=== PATIENT | female | born 1990 | race Caucasian/White ===

== ENCOUNTER 2020-06-04 10:51 | Outpatient (REF) | payer OTHER, SELFPAY ==
[2020-06-04 12:27] LABS: Vitamin D 25-OH Total 38.8 ng/mL (>30)
== END 2020-06-04 10:52 | disposition home or self-care (01) ==
LOC: HO.LAB 10:51
PROVIDERS: PCP Internal Medicine; Visit Provider Internal Medicine
DX: E55.9 Vitamin D deficiency, unspecified (principal)
CPT/HCPCS: 82306

== ENCOUNTER 2020-09-17 11:25 | Outpatient (REF) | payer OTHER, SELFPAY ==
[2020-09-18 08:10] LABS: HBsAGNum1 0.57 S/CO (0.00-0.99); HIV AB/AG Nonreactive (Nonreactive); HIV Num 1 0.34 S/CO (0.00-0.99); Hepatitis B Surface Antigen Negative (Negative); ~HepC Num1 0.12 S/CO (0.00-0.79); ~Hepatitis C Antibody Nonreactive (Nonreactive)
[2020-09-18 08:32] LABS: Syphilis Screen Nonreactive (Nonreactive)
[2020-09-18 18:13] LABS: C. trachomatis RNA TMA NOT DETECTED (NOT DETECTED); N. gonorrhoeae RNA TMA NOT DETECTED (NOT DETECTED)
== END 2020-09-17 11:26 | disposition home or self-care (01) ==
LOC: HO.LAB 11:25
PROVIDERS: PCP Internal Medicine; Visit Provider Advanced Practice Midwife
DX: Z01.419 Encounter for gynecological examination (general) (routine) without abnormal findings (principal); Z20.2 Contact with and (suspected) exposure to infections with a predominantly sexual mode of transmission
CPT/HCPCS: 36415; 86780; 86803; 87340; 87389; 87491; 87591; 87624; 88141; 88142

== ENCOUNTER 2020-11-03 13:22 | Outpatient (REF) | payer OTHER, SELFPAY | END 2020-11-03 13:23 | disposition home or self-care (01) | LOC: HO.LAB 13:22 | PROVIDERS: Visit Provider Obstetrics & Gynecology | DX: N87.0 Mild cervical dysplasia (principal) | CPT/HCPCS: 57455; 88305 ==

== ENCOUNTER → 2020-11-17 12:12 | Outpatient (BNVA) | payer OTHER, SELFPAY | PROVIDERS: Visit Provider Obstetrics & Gynecology ==

== ENCOUNTER 2021-11-24 12:41 | Outpatient (REF) | payer OTHER, SELFPAY ==
[2021-11-24 13:00] LABS: MANUAL DIFF FLAG NO
[2021-11-24 13:26] LABS: Basophils Absolute Auto 0.1 X10*3/uL (0.0-0.2); Basophils Percent Auto 0.6 % (0-2); Eosinophils Absolute Auto 0.1 X10*3/uL (0.0-0.4); Eosinophils Percent Auto 0.9 % (0-4); Hematocrit 44.1 % (37.0-47.0); Hemoglobin 14.3 g/dl (12.0-16.0); Imm Gran Abs Auto 0.02 X10*3/uL (0.00-0.03); Imm Gran Pct Auto 0.3 % (0.0-0.4); Lymphocytes Absolute Auto 2.2 X10*3/uL (1.2-4.9); Lymphocytes Percent Auto 27.5 % (20-40); Mean Corpuscular HGB Conc 32.4 g/dl (31.0-35.0); Mean Corpuscular Hemoglobin 27.7 pg (27.0-33.0); Mean Corpuscular Volume 85.3 fL (80.0-98.0); Mean Platelet Volume 10.8 fL (9.4-12.3); Monocytes Absolute Auto 0.4 X10*3/uL (0.1-1.2); Monocytes Percent Auto 5.5 % (2-11); Neutrophils Absolute Auto 5.2 x10*3/uL (2.0-8.3); Neutrophils Percent Auto 65.2 % (45-73); Platelet Count 364 X10*3/uL (160-400); Red Blood Count 5.17 X10*6/uL (4.20-5.50); White Blood Count 7.9 X10*3/uL (4.8-10.8)
[2021-11-24 13:44] LABS: Alanine Aminotransferase 50 U/L (0-31); Albumin Level 4.4 g/dL (3.5-5.0); Alkaline Phosphatase 89 U/L (39-117); Anion Gap 15 (12-20); Aspartate Amino Transferase 27 U/L (5-31); Bilirubin Total 0.5 mg/dL (0.0-1.0); Blood Urea Nitrogen 9 mg/dL (9-16); Calcium 9.5 mg/dL (8.4-10.2); Carbon Dioxide 23 mmol/L (22-29); Chloride 104 mmol/L (96-108); Cholesterol 241 mg/dL; Estimated Glomerular Filt Rate > 60; Glucose Fasting 108 mg/dL (60-99); HDL Cholesterol 44 mg/dL; LDL Cholesterol Calculated 171 mg/dl; Potassium 4.9 mmol/L (3.3-5.1); Sodium 137 mmol/L (135-145); Total Protein 7.9 g/dL (6.5-8.0); Triglycerides 134 mg/dL
[2021-11-24 14:05] LABS: Vitamin D 25-OH Total 20.5 ng/mL (>30)
== END 2021-11-24 12:42 | disposition home or self-care (01) ==
LOC: HO.LAB 12:41
PROVIDERS: PCP Internal Medicine; Visit Provider Internal Medicine
DX: Z00.00 Encounter for general adult medical examination without abnormal findings (principal); E55.9 Vitamin D deficiency, unspecified; J45.30 Mild persistent asthma, uncomplicated
CPT/HCPCS: 36415; 80053; 80061; 82306; 85025

== ENCOUNTER 2022-06-13 06:17 | Day surgery (SDC) | payer OTHER, SELFPAY ==
[2022-06-13] VITALS (16 sets, daily range): BP systolic 98–155; BP diastolic 54–75; PULSE 64–104; RESP 12–18; TEMP 36.3–37.3; O2SAT 95–100; BMI 30.4
--- NOTE | ~2022-06-13 | US_ITS ---
EXAMINATION: US ABDOMEN LIMITED CLINICAL INFORMATION: Right upper quadrant pain. COMPARISON: December 2019. TECHNIQUE: Real-time imaging of the right upper quadrant abdominal viscera. FINDINGS: PANCREAS: Normal. LIVER: Hyper echogenicity observed near the louis hepatis similar to previous evaluation at 3 x 1.9 x 2.3 cm. It is uncertain if this reflects hemangioma or pronounced fatty infiltration. GALLBLADDER: Gallstones observed. Gallbladder wall thickness 4.5 to 5 mm maximally but no pericholecystic fluid. COMMON BILE DUCT: Normal in caliber measuring 0.4 cm in diameter. RIGHT KIDNEY: Normal. No hydronephrosis. No renal calculi or focal parenchymal lesions. The kidney measures 9.6 cm in maximum dimension. There is a right-sided extrarenal pelvis observed. FREE FLUID: None. US/US abdomen limited IMPRESSION: Cholelithiasis. Gallbladder wall mildly thickened at 4.5 to 5 mm but no pericholecystic fluid. No CBD dilatation appreciated. Hyperechogenicity in the liver observed near the louis hepatis similar to previous evaluation. It is uncertain if this is related to hemangioma or pronounced fatty infiltration. MR examination of the liver as an outpatient without and with IV contrast enhancement could be helpful toward further clarification.
--- NOTE | 2022-06-13 07:33 | ED.NAVMDI ---
HPI - Nausea/Vomiting/Diarrhea General Chief complaint: General Medical Stated complaint: Vomiting Time Seen by Provider: 06/13/22 06:59 Source: patient and family Mode of arrival: ambulatory Limitations: no limitations History of Present Illness HPI Narrative: 31 yo female with hx of asthma, migraines, GERD reports yesterday she drank a fizzy drink about 1 hour later she developed n/v/d abdominal pain body aches and chills. Denies any other exposures or contacts. Has been sick since midnight MD elicited complaint: nausea, vomiting, diarrhea and abdominal pain Onset (ago): hour(s) (7) Description of vomiting: food contents and watery Associated nausea: Yes Associated abdominal pain: Yes Location of pain: diffuse and RUQ Radiation: diffuse Pain consistency: constant Severity: moderate Quality: cramping and aching Exacerbating factors: eating Relieving factors: none Associated symptoms: myalgias, fever/chills, loss of appetite, malaise, nausea/vomiting and weakness Treatment prior to arrival: other (pantoprazole and OTC antacid) Related Data Previous Rx's Medication Instructions Recorded norethindrone 1 mg-ethinyl 1 tab PO DAILY #84 tabs 10/22/21 estradiol 20 mcg ()-iron 75 mg (7) tablet (09/16 ()) pantoprazole 40 mg tablet,delayed 40 mg PO DAILY 90 days #90 tabs 04/27/22 release Allergies Allergy/AdvReac Type Severity Reaction Status Date / Time No Known Allergies Allergy Verified 11/22/21 13:21 [No Known Allergies*] Review of Systems Review of Systems: Constitutional : No Weight loss, No Fever, pos Chills ENT/Mouth : No sore throat, No Rhinorrhea Eyes: No Swelling, No Redness Cardiovascular : No Chest Pain, No SOB, NoEdema Respiratory : No Cough, No Sputum, No Wheezing Gastrointestinal : Positive Nausea, Positive Vomiting, positive Diarrhea, positive abdominal Pain, No Hematochezia, No Melena Genitourinary : No Dysuria, No Urinary Frequency, No Hematuria, No Urgency Musculoskeletal : No joint pain, pos Myalgias, No Joint Swelling Skin : No Skin Lesions, No rash Neuro : No Weakness, No Numbness, No Dizziness, No Headache Psych : No Anxiety/Panic, No Depression Heme/Lymph: No Bruising, No Lymphadenopathy Endocrine : No Polyuria, No Polydipsia All other systems reviewed and are negative. Gastrointestinal: Gastrointestinal: Reports nausea PMFSH Past Medical History Attestation statement: The following information was validated with the patient. Medical History Asthma Encounter for physical examination GERD (gastroesophageal reflux disease) Migraine Oral contraceptive use Surgical History History of lingual frenulectomy Family History Family History Father Diabetes CVD (cardiovascular disease) Mother No problems noted. Sister In good health Maternal Grandfather Pancreatic cancer Family/Other FH: mental illness Social History Social History Housing: House Alcohol intake: current Alcohol intake frequency: holidays/special occasions only Alcohol type: beer, wine and hard liquor Patient Tobacco Use Status: Former Tobacco user Tobacco use type: Cigarette e-Cigarette/Vaping Use: Never Used Second Hand Smoke Exposure: No Advance Directives: Yes Advance Directives Information Provided: Yes Advance Directives on File: No service: No Current occupational status: employed Current occupational exposures/hazards: No Gender identity: Female Physical Exam Vital Signs: Vital Signs: Last Vital Signs Temp 98.7 F 06/13/22 08:33 Pulse 83 06/13/22 08:33 Resp 12 06/13/22 08:33 BP 98/54 L 06/13/22 08:33 Pulse Ox 100 06/13/22 08:33 O2 Del Method 06/13/22 08:33 BMI result Body Mass Index 30.4 Appearance: Alert. Oriented X3. No acute distress. Anxious Eyes: Pupils equal, round and reactive to light. ENT: Pharynx normal. Neck: Normal inspection. Neck supple. CVS: Normal heart rate and rhythm. Pulses normal. Respiratory: No respiratory distress. Breath sounds normal. Abdomen: Soft and mild diffuse ttp but moderate RUQ pain with + rojas's sign Skin: Skin warm and dry. Normal skin color. Normal skin turgor. Extremities: No lower extremity edema. No calf ttp Neuro: Oriented X 3. No motor deficit. No sensory deficit. Course Course Course Narrative: message sent to Dr. Aviles 941am - plan to admit the patient MDM - Nausea/Vomiting/Diarrhea MDM Narrative Medical decision making narrative: 31 yo female with hx of asthma and GERD here with c/o n/v/d and body aches/chills at this time will need labs, UA, US of GB - flu and COVID swab. IVF and toradol/pepcid ordered. Possible viral / food poisoning vs cholecystitis. Lab Data Result diagrams: 06/13/22 07:38 06/13/22 07:38 Labs: Lab Results 06/13/22 06/13/22 06/13/22 Range/Units 07:38 07:38 07:38 WBC 11.9 H (4.8-10.8) X10*3/uL RBC 5.01 (4.20-5.50) X10*6/uL Hgb 13.7 (12.0-16.0) g/dl Hct 41.3 (37.0-47.0) % MCV 82.4 (80.0-98.0) fL MCH 27.3 (27.0-33.0) pg MCHC 33.2 (31.0-35.0) g/dl RDW 12.7 (11.0-16.0) % Plt Count 310 (160-400) X10*3/uL MPV 10.7 (9.4-12.3) fL Immature Gran % (Auto) 0.3 (0.0-0.4) % Neut % (Auto) 94.6 H (45-73) % Lymph % (Auto) 4.1 L (20-40) % [place] % (Auto) 0.8 L (2-11) % Eos % (Auto) 0.0 (0-4) % Baso % (Auto) 0.2 (0-2) % Lymph # (Auto) 0.5 L (1.2-4.9) X10*3/uL [place] # (Auto) 0.1 (0.1-1.2) X10*3/uL Eos # (Auto) 0.0 (0.0-0.4) X10*3/uL Baso # (Auto) 0.0 (0.0-0.2) X10*3/uL Abs Immat Gran (auto) 0.03 (0.00-0.03) X10*3/uL Absolute Neuts (auto) 11.2 H (2.0-8.3) x10*3/uL Absolute Nucleated RBC 0.000 (0.0-0.012) X10*3/uL Nucleated RBC % (auto) 0.0 (0.0-0.2) /100WBC Smear Tech's Comments VERIFIED Sodium 139 (135-145) mmol/L Potassium 4.3 (3.3-5.1) mmol/L Chloride 104 (96-108) mmol/L Carbon Dioxide 22 (22-29) mmol/L Anion Gap 17 (12-20) BUN 8 L (9-16) mg/dL Creatinine 0.84 (0.5-1.4) mg/dL Estim Creat Clear Calc 90.3 Estimated GFR > 60 Random Glucose 127 H (60-115) mg/dL Calcium 9.4 (8.4-10.2) mg/dL Total Bilirubin 0.4 (0.0-1.0) mg/dL AST 23 (5-31) U/L ALT 40 H (0-31) U/L Alkaline Phosphatase 83 (39-117) U/L Total Protein 7.9 (6.5-8.0) g/dL Albumin 4.5 (3.5-5.0) g/dL Lipase 15 (8-78) U/L Urine Color Urine Appearance Urine pH (5.0-9.0) Ur Specific [place] (1.005-1.025) Urine Protein (Neg-Trace) mg/dL Urine Glucose (UA) (Negative) mg/dL Urine Ketones (Negative) mg/dL Urine Blood (Negative) Urine Nitrite (Negative) Ur Leukocyte Esterase (Negative) Urine RBC (0-2) /HPF Urine WBC (0-5) /HPF Ur Squamous Epith Cells (0-2) /HPF Urine Bacteria (None Seen) Hyaline Casts (0-2) /LPF Urine Test (NEGATIVE) COVID-19 (SHAHRAM) (Negative) COVID-19 Clin Com Influenza Type A (FELIBERTO) Negative (Negative) Influenza Type B (FELIBERTO) Negative (Negative) Influenza A & B Note See Note 06/13/22 06/13/22 06/13/22 Range/Units 07:38 08:38 08:38 WBC (4.8-10.8) X10*3/uL RBC (4.20-5.50) X10*6/uL Hgb (12.0-16.0) g/dl Hct (37.0-47.0) % MCV (80.0-98.0) fL MCH (27.0-33.0) pg MCHC (31.0-35.0) g/dl RDW (11.0-16.0) % Plt Count (160-400) X10*3/uL MPV (9.4-12.3) fL Immature Gran % (Auto) (0.0-0.4) % Neut % (Auto) (45-73) % Lymph % (Auto) (20-40) % [place] % (Auto) (2-11) % Eos % (Auto) (0-4) % Baso % (Auto) (0-2) % Lymph # (Auto) (1.2-4.9) X10*3/uL [place] # (Auto) (0.1-1.2) X10*3/uL Eos # (Auto) (0.0-0.4) X10*3/uL Baso # (Auto) (0.0-0.2) X10*3/uL Abs Immat Gran (auto) (0.00-0.03) X10*3/uL Absolute Neuts (auto) (2.0-8.3) x10*3/uL Absolute Nucleated RBC (0.0-0.012) X10*3/uL Nucleated RBC % (auto) (0.0-0.2) /100WBC Smear Tech's Comments Sodium (135-145) mmol/L Potassium (3.3-5.1) mmol/L Chloride (96-108) mmol/L Carbon Dioxide (22-29) mmol/L Anion Gap (12-20) BUN (9-16) mg/dL Creatinine (0.5-1.4) mg/dL Estim Creat Clear Calc Estimated GFR Random Glucose (60-115) mg/dL Calcium (8.4-10.2) mg/dL Total Bilirubin (0.0-1.0) mg/dL AST (5-31) U/L ALT (0-31) U/L Alkaline Phosphatase (39-117) U/L Total Protein (6.5-8.0) g/dL Albumin (3.5-5.0) g/dL Lipase (8-78) U/L Urine Color Yellow Urine Appearance Cloudy Urine pH 6.0 (5.0-9.0) Ur Specific [place] >= 1.030 H (1.005-1.025) Urine Protein Trace (Neg-Trace) mg/dL Urine Glucose (UA) Negative (Negative) mg/dL Urine Ketones 80 (Negative) mg/dL Urine Blood Trace H (Negative) Urine Nitrite Negative (Negative) Ur Leukocyte Esterase Small (1+) H (Negative) Urine RBC 6-10 H (0-2) /HPF Urine WBC 11-20 H (0-5) /HPF Ur Squamous Epith Cells 6-10 (0-2) /HPF Urine Bacteria 1+ (None Seen) Hyaline Casts 0-2 (0-2) /LPF Urine Test NEGATIVE (NEGATIVE) COVID-19 (SHAHRAM) Negative (Negative) COVID-19 Clin Com See Note Influenza Type A (FELIBERTO) (Negative) Influenza Type B (FELIBERTO) (Negative) Influenza A & B Note Discharge Plan Discharge Clinical Impression: Abdominal pain, Vomiting, Cholelithiasis Patient Disposition: Admitted As Inpatient Prescriptions: No Action norethindrone-e.estradiol-iron [June FE 09/16 (28)] 1 mg-20 mcg (21)/75 mg (7) tablet 1 tab PO DAILY Qty: 84 3RF pantoprazole 40 mg tablet,delayed release (DR/EC) 40 mg PO DAILY 90 Days Qty: 90 0RF
[2022-06-13] MEDS: Ketorolac Tromethamine 15 MG/ML VIAL 30 MG IVPUSH (07:50)
[2022-06-13] MEDS: Famotidine/PF 20 MG/2 ML VIAL IVPUSH (07:50)
[2022-06-13] MEDS: ondansetron HCL 4 MG/2 ML VIAL IVPUSH ×2 (07:51→23:07)
[2022-06-13] MEDS: 0.9 % Sodium Chloride 1,000 ML 999 ML IV ×2 (07:51→09:05)
[2022-06-13 07:52] LABS: Basophils Percent Auto 0.2 % (0-2); Hematocrit 41.3 % (37.0-47.0); Hemoglobin 13.7 g/dl (12.0-16.0); Imm Gran Abs Auto 0.03 X10*3/uL (0.00-0.03); Imm Gran Pct Auto 0.3 % (0.0-0.4); Lymphocytes Absolute Auto 0.5 X10*3/uL (1.2-4.9); Lymphocytes Percent Auto 4.1 % (20-40); MANUAL DIFF FLAG SCAN; Mean Corpuscular HGB Conc 33.2 g/dl (31.0-35.0); Mean Corpuscular Hemoglobin 27.3 pg (27.0-33.0); Mean Corpuscular Volume 82.4 fL (80.0-98.0); Mean Platelet Volume 10.7 fL (9.4-12.3); Monocytes Absolute Auto 0.1 X10*3/uL (0.1-1.2); Monocytes Percent Auto 0.8 % (2-11); Neutrophils Absolute Auto 11.2 x10*3/uL (2.0-8.3); Neutrophils Percent Auto 94.6 % (45-73); Platelet Count 310 X10*3/uL (160-400); Red Blood Count 5.01 X10*6/uL (4.20-5.50); Red Cell Distribution Width 12.7 % (11.0-16.0); SCAN SMEAR FLAG 1; White Blood Count 11.9 X10*3/uL (4.8-10.8)
[2022-06-13 08:11] LABS: Alanine Aminotransferase 40 U/L (0-31); Albumin Level 4.5 g/dL (3.5-5.0); Alkaline Phosphatase 83 U/L (39-117); Anion Gap 17 (12-20); Aspartate Amino Transferase 23 U/L (5-31); Bilirubin Total 0.4 mg/dL (0.0-1.0); Blood Urea Nitrogen 8 mg/dL (9-16); COVID-19 Test Negative (Negative); Calcium 9.4 mg/dL (8.4-10.2); Carbon Dioxide 22 mmol/L (22-29); Chloride 104 mmol/L (96-108); Creatinine Clr Calc Pharmacy 90.3; Estimated Glomerular Filt Rate > 60; Glucose Random 127 mg/dL (60-115); IDNOW Serial# 16C4AD1C; IDNOW Serial# 9DB6401D; Influenza A Negative (Negative); Influenza B2 Negative (Negative); Lipase 15 U/L (8-78); Potassium 4.3 mmol/L (3.3-5.1); Sodium 139 mmol/L (135-145); Total Protein 7.9 g/dL (6.5-8.0)
[2022-06-13 08:21] LABS: SLIDE REVIEW VERIFIED
[2022-06-13 08:47] LABS: Appearance Urine Cloudy; Color Urine Yellow; Glucose Urine UA Negative (Negative); Leukocyte Esterase Urine Small (1+) (Negative); Nitrite Urine Negative (Negative); Specific Gravity - Urine >= 1.030 (1.005-1.025); UMIC TRIGGER UACC YES; Urine Blood Trace (Negative); Urine Ketones 80 mg/dL (Negative); Urine Protein Trace mg/dL (Neg-Trace)
[2022-06-13 08:49] LABS: Bacteria Urine 1+ (None Seen); Hyaline Casts Urine 0-2 /LPF (0-2); UACC Culture Trigger YES; UPreg QC Valid YES; Urine Pregnancy NEGATIVE (NEGATIVE)
--- NOTE | 2022-06-13 11:23 | P.HPGS_ITS ---
History of Present Illness History of Present Illness Date of Service: 06/13/22 Chief complaint: Vomiting Narrative: Leyla Burrell is a 31 year old female presenting to the emergency department with complaints of epigastric and right upper quadrant abdominal pain. Pain is associated with nausea and vomiting, with fever and chills. She also reports diarrhea. The pain began at approximately 23:00 and persisted since then. She reports a previous history of similar pain which was determined to be heartburn. Presentation to the emergency department she was noted to be tender in the right upper quadrant with a positive Pappas's sign. Subsequent ultrasound of the abdomen revealed a thickened gallbladder wall with gallstones within the gallbladder. Findings are suggestive of acute cholecystitis. WBC was also elevated at 11.9. Her pain was 10/10 on presentation with currently is approximately 6 to 7/10. Review of Systems Review of Systems: Yes all other systems are reviewed and are negative Constitutional: Constitutional: Denies anorexia, Reports body ache(s), Reports chills, Reports fatigue, Denies headache(s) and Denies night sweats ENT: Denies headache(s) Cardiovascular: Cardiovascular: Reports painful fingertips, Denies chest pain, Denies irregular heart rhythm and Denies palpitations Respiratory: Respiratory: Denies chest congestion, Denies cough and Denies hemoptysis Gastrointestinal: Gastrointestinal: Reports as per HPI, Reports abdominal pain, Denies constipation, Reports dyspepsia, Reports heartburn, Reports diarrhea, Reports nausea and Reports vomiting Genitourinary: Genitourinary: Reports no additional female genitourinary complaints Musculoskeletal: Musculoskeletal: Denies abnormal gait and Reports myalgias Neurologic: Denies Abnormal speech present, Denies abnormal gait, Denies headache(s) and Denies paresthesias Endocrine: Endocrine: Reports fatigue and Denies palpitations Hematologic/Lymphatic: Hematologic/Lymphatic: Denies lymphadenopathy [facility] Past Medical History Medical History Asthma Encounter for physical examination GERD (gastroesophageal reflux disease) Migraine Oral contraceptive use Family History Family History Father Diabetes CVD (cardiovascular disease) Mother No problems noted. Sister In good health Maternal Grandfather Pancreatic cancer Family/Other FH: mental illness Surgical History Surgical History History of lingual frenulectomy Social History Social History Housing: House Alcohol intake: current Alcohol intake frequency: holidays/special occasions only Alcohol type: beer, wine and hard liquor Patient Tobacco Use Status: Former Tobacco user Tobacco use type: Cigarette e-Cigarette/Vaping Use: Never Used Second Hand Smoke Exposure: No Advance Directives: Yes Advance Directives Information Provided: Yes Advance Directives on File: No service: No Current occupational status: employed Current occupational exposures/hazards: No Gender identity: Female Meds Allergies Allergy/AdvReac Type Severity Reaction Status Date / Time No Known Allergies Allergy Verified 11/22/21 13:21 [No Known Allergies*] Physical Exam Vital Signs: Vital Signs: Last Vital Signs Temp 98.7 F 06/13/22 08:33 Pulse 83 06/13/22 08:33 Resp 12 06/13/22 08:33 BP 98/54 L 06/13/22 08:33 Pulse Ox 100 06/13/22 08:33 O2 Del Method 06/13/22 08:33 BMI result Body Mass Index 30.4 Const: General: healthy appearing and comfortable Nutritional Appearance: well nourished Orientation/consciousness: patient oriented x3 Limitations: no limitations HEENT: Head: Yes normocephalic and Yes atraumatic Ears: hearing grossly normal bilaterally Eyes: Sclerae: sclerae normal EOM: EOMs intact bilaterally Resp: Effort & Inspection: normal respiratory effort Auscultation: clear to auscultation bilaterally Cardio: Jugular venous distension: no JVD Rate: regular rate Rhythm: regular rhythm Heart sounds: S1 normal heart sound present and S2 normal heart sound present GI: Inspection: Yes normal to inspection Palpation (GI): Soft to palpation, Tenderness to palpation present (GI) in the RUQ and Pappas's sign positive, no guarding and No hepatosplenomegaly present Auscultation: normal bowel sounds Rectal Exam - Female: deferred Skin: General skin exam: no rashes or lesions noted Neuro: General: patient oriented x3 Speech: No Abnormal speech present Extrem: General: Yes no clubbing, cyanosis or edema Results Results Labs: Short CBC 06/13/22 Range/Units 07:38 WBC 11.9 H (4.8-10.8) X10*3/uL Hgb 13.7 (12.0-16.0) g/dl Hct 41.3 (37.0-47.0) % Plt Count 310 (160-400) X10*3/uL BMP 06/13/22 07:38 Sodium 139 Potassium 4.3 Chloride 104 Carbon Dioxide 22 BUN 8 L Creatinine 0.84 Calcium 9.4 Liver Function 06/13/22 Range/Units 07:38 Total Bilirubin 0.4 (0.0-1.0) mg/dL AST 23 (5-31) U/L ALT 40 H (0-31) U/L Alkaline Phosphatase 83 (39-117) U/L Albumin 4.5 (3.5-5.0) g/dL Urine 06/13/22 06/13/22 Range/Units 08:38 08:38 Urine Color Yellow Urine Appearance Cloudy Urine pH 6.0 (5.0-9.0) Ur Specific [place] >= 1.030 H (1.005-1.025) Urine Protein Trace (Neg-Trace) mg/dL Urine Glucose (UA) Negative (Negative) mg/dL Urine Test NEGATIVE (NEGATIVE) Assessment and Plan (1) Acute cholecystitis due to biliary calculus: Status: Acute Plan 31-year-old female patient presenting with complaints of abdominal pain in the right upper quadrant and epigastrium associated with nausea, vomiting, diarrhea, and body aches. Patient was found to have gallstones within the gallbladder with thickened gallbladder wall. On examination patient is tender in the epigastrium and right upper quadrant with a positive Pappas sign. Findings are suggestive of acute cholecystitis. I recommended laparoscopic or possible open cholecystectomy. After a discussion of the procedure, risks, and alternatives, she consents to the surgery. Quality Stroke Does the patient have a stroke diagnosis?: No VTE Prior VTE?: No VTE Risk Level:: Surgical - moderate VTE Device Contraindication: N/A - Device Ordered VTE Drug Contraindication: Treatment Not Indicated Procedures Date of Service Date of Service: 06/13/22
--- NOTE | 2022-06-13 11:48 | PC.NURSE ---
RN gave report to nurse alba.
--- NOTE | 2022-06-13 11:52 | PHA.MEDREC ---
Pharmacy Consult ? Medication Reconciliation Pharmacy has completed the medication reconciliation.
--- NOTE | 2022-06-13 12:01 | P.CONAN_ITS ---
[facility] Active Problems Active Problems: All Active Problems (Updated 06/13/22 @ 11:30 by Jose Aviles MD) Acute cholecystitis due to biliary calculus (Acute) Abdominal pain (Acute) Vomiting (Acute) Cholelithiasis (Acute) Encounter for physical examination (Acute) Migraine (Acute) Asthma (Acute) GERD (gastroesophageal reflux disease) (Acute) Past Medical History Medical History Asthma Encounter for physical examination GERD (gastroesophageal reflux disease) Migraine Oral contraceptive use Family History Family History Father Diabetes CVD (cardiovascular disease) Mother No problems noted. Sister In good health Maternal Grandfather Pancreatic cancer Family/Other FH: mental illness Family history of problems with anesthesia: No Surgical History Surgical History History of lingual frenulectomy History of Problems with Anesthesia: No Social History Social History Housing: House Alcohol intake: current Alcohol intake frequency: holidays/special occasions only Alcohol type: beer, wine and hard liquor Patient Tobacco Use Status: Former Tobacco user Tobacco use type: Cigarette e-Cigarette/Vaping Use: Never Used Second Hand Smoke Exposure: No Advance Directives: Yes Advance Directives Information Provided: Yes Advance Directives on File: No service: No Current occupational status: employed Current occupational exposures/hazards: No Gender identity: Female Meds Allergies Allergy/AdvReac Type Severity Reaction Status Date / Time No Known Allergies Allergy Verified 11/22/21 13:21 [No Known Allergies*] Home Medications Medication Instructions Recorded Confirmed Last Taken Type acetaminophen 650 mg/20.3 mL oral 650 mg PO Q4H PRN Pain 06/13/22 06/13/22 06/12/22 History solution Exam Exam Date and Time: June 13, 2022 1201 Height,Weight and Vital Signs: Height 5 ft 1 in Weight 73 kg Last Vital Signs Temp 98.7 F 06/13/22 08:33 Pulse 83 06/13/22 08:33 Resp 12 06/13/22 08:33 BP 98/54 L 06/13/22 08:33 Pulse Ox 100 06/13/22 08:33 O2 Del Method 06/13/22 08:33 Pertinent Lab Results Pertinent Lab Results: Laboratory Tests 06/13/22 06/13/22 06/13/22 07:38 07:38 07:38 WBC 11.9 H RBC 5.01 Hgb 13.7 Hct 41.3 MCV 82.4 MCH 27.3 MCHC 33.2 RDW 12.7 Plt Count 310 MPV 10.7 Immature Gran % (Auto) 0.3 Neut % (Auto) 94.6 H Lymph % (Auto) 4.1 L [place] % (Auto) 0.8 L Eos % (Auto) 0.0 Baso % (Auto) 0.2 Lymph # (Auto) 0.5 L [place] # (Auto) 0.1 Eos # (Auto) 0.0 Baso # (Auto) 0.0 Abs Immat Gran (auto) 0.03 Absolute Neuts (auto) 11.2 H Absolute Nucleated RBC 0.000 Nucleated RBC % (auto) 0.0 Smear Tech's Comments VERIFIED Sodium 139 Potassium 4.3 Chloride 104 Carbon Dioxide 22 Anion Gap 17 BUN 8 L Creatinine 0.84 Estim Creat Clear Calc 90.3 Estimated GFR > 60 Random Glucose 127 H Calcium 9.4 Total Bilirubin 0.4 AST 23 ALT 40 H Alkaline Phosphatase 83 Total Protein 7.9 Albumin 4.5 Lipase 15 Urine Color Urine Appearance Urine pH Ur Specific [place] Urine Protein Urine Glucose (UA) Urine Ketones Urine Blood Urine Nitrite Ur Leukocyte Esterase Urine RBC Urine WBC Ur Squamous Epith Cells Urine Bacteria Hyaline Casts Urine Test COVID-19 (SHAHRAM) COVID-19 Clin Com Influenza Type A (FELIBERTO) Negative Influenza Type B (FELIBERTO) Negative Influenza A & B Note See Note 06/13/22 06/13/22 06/13/22 07:38 08:38 08:38 WBC RBC Hgb Hct MCV MCH MCHC RDW Plt Count MPV Immature Gran % (Auto) Neut % (Auto) Lymph % (Auto) [place] % (Auto) Eos % (Auto) Baso % (Auto) Lymph # (Auto) [place] # (Auto) Eos # (Auto) Baso # (Auto) Abs Immat Gran (auto) Absolute Neuts (auto) Absolute Nucleated RBC Nucleated RBC % (auto) Smear Tech's Comments Sodium Potassium Chloride Carbon Dioxide Anion Gap BUN Creatinine Estim Creat Clear Calc Estimated GFR Random Glucose Calcium Total Bilirubin AST ALT Alkaline Phosphatase Total Protein Albumin Lipase Urine Color Yellow Urine Appearance Cloudy Urine pH 6.0 Ur Specific [place] >= 1.030 H Urine Protein Trace Urine Glucose (UA) Negative Urine Ketones 80 Urine Blood Trace H Urine Nitrite Negative Ur Leukocyte Esterase Small (1+) H Urine RBC 6-10 H Urine WBC 11-20 H Ur Squamous Epith Cells 6-10 Urine Bacteria 1+ Hyaline Casts 0-2 Urine Test NEGATIVE COVID-19 (SHAHRAM) Negative COVID-19 Clin Com See Note Influenza Type A (FELIBERTO) Influenza Type B (FELIBERTO) Influenza A & B Note Airway Mallampati Class: II TM Dist: >3cm Neck ROM: Full Assessment and Plan Assessment Anesthesia Assessment: Anesthesia Plan Discussed and Chart Reviewed Final Anesthetic Review Family History of Problems with Anesthesia: No History of Problems with Anesthesia: No NPO: Yes ASA Class: II and Emergency Final Preanesthetic Review: Meds/Allgs Chart Reviewed, Consent Obtained/Reviewed and Anes Risks/Benef Reviewed Patient Risk: Intermediate Procedure Risk: Intermediate Anesthetic Plan Anesthetic Plan: GA Disposition: Standard PACU
--- NOTE | 2022-06-13 12:31 | PC.NURSE ---
Right side PRN angio #20 in AC asymptomatic.
--- NOTE | 2022-06-13 14:10 | P.OP_ITS ---
Operative Note Operative Note Date of Service: 06/13/22 Narrative: Preoperative diagnosis: Acute cholecystitis, cholelithiasis Postoperative diagnosis: Same Procedure: Laparoscopic cholecystectomy Surgeon: Jose Aviles MD Shipping Point Inspector: LUIS Green Anesthesia: General endotracheal Indications for procedure:31 year old female with acute onset of abdominal pain in the right and left upper abdomen, associated with nausea and vomiting, positive thickened gallbladder on ultrasound. Operative findings: acutely inflamed gallbladder with multiple small gallstones. No definite hemangioma was noted adjacent to the gallbladder, ? fatty infiltration. Specimen: gallbladder Estimated blood loss:5 mls Complications: none Procedure details: Patient was brought to the OR and placed in a supine position. After administering general anesthesia the patient's abdomen was prepped with ChloraPrep and draped in a sterile fashion. Local anesthesia consisting of 0.5% Sensorcaine without epinephrine was infiltrated in a periumbilical region. A 5 mm incision was made above the umbilicus in a transverse fashion. The Veress needle was then inserted while elevating abdominal cavity with towel clips. After positive drop test the abdomen was insufflated to a pressure of 15 mm of mercury. The Veress needle was then removed and a 5 mm trocar inserted. The camera was inserted in the abdomen explored. A 12 mm trocar was then placed in the epigastrium. Two 5 mm trocars placed in the right upper quadrant by the registered nurse first assistant. The patient was placed in reverse Trendelenburg positioning and rotated to the left. The gallbladder was grasped with the fundus and retracted cephalad by the registered nurse first assistant. The infundibulum was then grasped and retracted away from the liver bed, also by the registered nurse first assistant. The Dolphin dissected was then used by the surgeon to dissect the peritoneum off the infundibulum to reveal the junction with the cystic duct. Cystic artery was noted slightly medial and posterior to the cystic duct. After obtaining a critical view the cystic duct was doubly clipped and divided. The cystic artery was then doubly clipped and divided. The gallbladder was then dissected off the liver bed using electrocautery with an L hook. Hemostasis was assured all times using the electrocautery. When the gallbladder is completely dissected off the liver bed was placed in an Endo-Catch bag and brought out through the epigastric incision. The gallbladder was sent to pathology for further examination. The abdomen was then re-examined. The liver bed was irrigated and suctioned dry. No bleeding or bile leak could be identified. A small piece of Surgicel was applied to the liver edge to prevent any liver edge bleeding. CO2 was then evacuated and all trocars removed. Fascia was closed at the epigastric incision using a [id number] 0 Polysorb suture. Skin was closed in all incisions using a subcuticular 4 0 Polysorb suture by both the surgeon and registered nurse first assistant. Sterile dressings consisting of Steri-Strips, 2 x 2 gauze, and Tegaderm were then applied. The patient tolerated the procedure well. Sponge instrument and needle counts reported as correct. The patient was transferred to PACU in stable condition.
[2022-06-13] MEDS: Lactated Ringers 1,000 ML 100 ML IVCONT (16:13)
[2022-06-13] MEDS: oxyCODONE HCl Immed Release 5 MG TABLET PO (20:26)
[2022-06-13] MEDS: HYDROmorphone HCl 0.5 MG/0.5 ML SYRINGE IVPUSH (23:07)
[2022-06-14] VITALS: BP 126/66; PULSE 81; RESP 18; TEMP 37.1; O2SAT 98
[2022-06-14] MEDS: HYDROmorphone HCl 0.5 MG/0.5 ML SYRINGE IVPUSH (03:35)
[2022-06-14 03:58] VITALS: BP 109/57; PULSE 76; RESP 18; TEMP 36.6; O2SAT 98
[2022-06-14] MEDS: Omeprazole 20 MG CAPSULE.DR PO (06:16)
[2022-06-14 07:56] VITALS: BP 114/62; PULSE 70; RESP 19; TEMP 36.7; O2SAT 98
--- NOTE | 2022-06-14 08:30 | HO.POSTANES ---
Post Anesthesia Evaluation Post Anesthesia Evaluation Vital Signs: Vital Signs Temp Pulse Resp BP Pulse Ox O2 Del Method 06/14/22 07:56 98.0 F 70 19 114/62 98 Room Air 06/14/22 03:58 98 F 76 18 109/57 L 98 Room Air 06/14/22 00:00 98.8 F 81 18 126/66 98 Room Air Anesthesia: General Endotracheal-GETA Mental Status: Awake Pain Control: Satisfactory Nausea/Vomiting: None Hydration: Adequate Anesthesia-Related Issues: No Anes. Related Issues
[2022-06-14] MEDS: oxyCODONE HCl Immed Release 5 MG TABLET PO (08:44)
== END 2022-06-14 11:06 | disposition home or self-care (01) ==
LOC: HO.ED 11:41 → HO.SSS 11:52 → HO.EDOVER 16:47 → HO.SSS 16:48 → HO.S3 16:49
PROVIDERS: Student in an Organized Health Care Education/Training Program; Emergency Provider Emergency Medicine; PCP Internal Medicine; Visit Provider Surgery
PROC: 0FT44ZZ Resection of Gallbladder, Percutaneous Endoscopic Approach (ICD-10-PCS; CPT 47562; principal; 2022-06-13 12:30)
DX: K80.12 Calculus of gallbladder with acute and chronic cholecystitis without obstruction (principal); R11.10 Vomiting, unspecified; K21.9 Gastro-esophageal reflux disease without esophagitis; G43.909 Migraine, unspecified, not intractable, without status migrainosus; J45.909 Unspecified asthma, uncomplicated; Z87.891 Personal history of nicotine dependence; Z79.3 Long term (current) use of hormonal contraceptives; Z79.899 Other long term (current) drug therapy; Z20.822 Contact with and (suspected) exposure to COVID-19
CPT/HCPCS: 47562; 36415; 76705; 80053; 81001; 81025; 83690; 85025; 87086; 87502; 87635; 88304; 96361; 96374; 96375; 99285; J1100; J1170; J1885; J2250; J2405; J2550; J2795; J3010

== ENCOUNTER → 2022-07-01 08:35 | Outpatient (BNVA) | payer OTHER, SELFPAY | PROVIDERS: PCP Internal Medicine; Visit Provider Surgery | DX: Z90.49 Acquired absence of other specified parts of digestive tract (principal) | CPT/HCPCS: 99211 ==

== ENCOUNTER → 2022-07-14 09:12 | Outpatient (BNVA) | payer OTHER, SELFPAY | PROVIDERS: PCP Internal Medicine; Visit Provider Physician Assistant Surgical | DX: Z90.49 Acquired absence of other specified parts of digestive tract (principal) | CPT/HCPCS: 99212 ==

== ENCOUNTER 2022-11-29 10:47 | Outpatient (REF) | payer OTHER, SELFPAY ==
[2022-11-29 13:01] LABS: Alanine Aminotransferase 42 U/L (0-31); Albumin Level 4.2 g/dL (3.5-5.0); Alkaline Phosphatase 77 U/L (39-117); Anion Gap 17 (12-20); Aspartate Amino Transferase 23 U/L (5-31); Bilirubin Total 0.5 mg/dL (0.0-1.0); Blood Urea Nitrogen 9 mg/dL (9-16); Calcium 8.8 mg/dL (8.4-10.2); Carbon Dioxide 19 mmol/L (22-29); Chloride 106 mmol/L (96-108); Cholesterol 222 mg/dL; Estimated Glomerular Filt Rate > 60; Glucose Fasting 96 mg/dL (60-99); HDL Cholesterol 43 mg/dL; LDL Cholesterol Calculated 158 mg/dl; Potassium 4.2 mmol/L (3.3-5.1); Sodium 138 mmol/L (135-145); Total Protein 7.4 g/dL (6.5-8.0); Triglycerides 106 mg/dL
== END 2022-11-29 10:48 | disposition home or self-care (01) ==
LOC: HO.LAB 10:47
PROVIDERS: PCP Internal Medicine; Visit Provider Internal Medicine
DX: Z00.00 Encounter for general adult medical examination without abnormal findings (principal); E78.5 Hyperlipidemia, unspecified
CPT/HCPCS: 36415; 80053; 80061

== ENCOUNTER 2023-02-01 20:33 | Emergency (ER) | payer OTHER, SELFPAY ==
--- NOTE | ~2023-02-01 | XR_ITS ---
EXAMINATION: XR ANKLE, RIGHT CLINICAL INFORMATION: Pain. COMPARISON: None available. TECHNIQUE: AP, lateral, and mortise views of the right ankle. FINDINGS: Bony alignment and mineralization are normal. The ankle mortise is intact. No fracture, dislocation or right ankle joint effusion is seen. Boehler's angle is normal. There is no calcaneal spur. There is moderate soft tissue swelling adjacent to the lateral malleolus. XR/XR ankle RT min 3V IMPRESSION: 1. No fracture, dislocation or right ankle joint effusion is seen. 2. There is moderate soft tissue swelling adjacent to the right lateral malleolus.
[2023-02-01 20:47] VITALS: BP 134/53; PULSE 90; RESP 18; TEMP 36.6; O2SAT 97; BMI 32.1
--- NOTE | 2023-02-01 20:50 | ED_ITS ---
HPI - General Adult General Chief complaint: Extremity Injury, Lower Stated complaint: R ankle inj but also the left ankle Time Seen by Provider: 02/01/23 20:58 Source: patient Mode of arrival: ambulatory Limitations: no limitations History of Present Illness HPI narrative: This is a 32-year-old female presenting with right ankle pain status post missing a few steps while going down the stairs while leaving in the [employer] play place. Patient reports that she rolled her ankle out words, since then has been having pain, swelling. Worse with movement and ambulation better at rest. Denies numbness, tingling. No previous issues with right ankle. No fall with head strike. No other injuries sustained. Related Data Previous Rx's Medication Instructions Recorded norethindrone 1 mg-ethinyl 1 tab PO DAILY #84 tabs 09/18/22 estradiol 20 mcg (21)-iron 75 mg (7) tablet (09/16 (28)) ketorolac 10 mg tablet 10 mg PO TID PRN pain 5 days #15 02/01/23 tabs Allergies Allergy/AdvReac Type Severity Reaction Status Date / Time No Known Allergies Allergy Verified 02/01/23 20:46 [No Known Allergies*] Review of Systems Review of Systems: Constitutional : No Weight loss, No Fever, No Chills, No Fatigue, No Malaise ENT/Mouth : No sore throat, No Rhinorrhea Eyes: No Eye Pain, No Swelling, No Redness Cardiovascular : No Chest Pain, No SOB, No Dyspnea on Exertion, No Orthopnea, No Edema, No Palpitations Respiratory : No Cough, No Sputum, No Wheezing Gastrointestinal : No Nausea, No Vomiting, No Diarrhea, No Constipation, No abdominal Pain, No Hematochezia, No Melena Genitourinary : No Dysuria, No Urinary Frequency, No Hematuria, Musculoskeletal : + joint pain, No Myalgias, + Joint Swelling Skin : No Skin Lesions, No rash Neuro : No Weakness, No Numbness, No Dizziness, No Headache Psych : No Anxiety/Panic, No Depression All other systems reviewed and are negative Yes all other systems are reviewed and are negative [facility] Past Medical History Attestation statement: The following information was validated with the patient. Source: old records reviewed and nursing notes reviewed Medical History Acute cholecystitis due to biliary calculus Asthma Cholelithiasis Encounter for physical examination GERD (gastroesophageal reflux disease) Migraine Oral contraceptive use Surgical History History of laparoscopic cholecystectomy (06/13/22) History of lingual frenulectomy Family History Family History Father Diabetes CVD (cardiovascular disease) Mother No problems noted. Sister In good health Maternal Grandfather Pancreatic cancer Family/Other FH: mental illness Social History Social History (Updated 11/24/22 @ 12:48 by Danitza Jay MD) Housing: House Alcohol intake: current Alcohol intake frequency: a few times a month Alcohol type: beer, wine and hard liquor Patient Tobacco Use Status: Former Tobacco user Quit Date: 2011 Tobacco use type: Cigarette e-Cigarette/Vaping Use: Currently Using Second Hand Smoke Exposure: No Advance Directives: No Advance Directives Information Provided: Yes service: No Current occupational status: employed Current occupational exposures/hazards: No Gender identity: Female Cognitive needs: No Hearing needs: No Vision needs: No Physical Exam ED Vital Signs: Vital Signs - 24 hr 02/01/23 20:47 Temperature 97.9 F Pulse Rate 90 Respiratory Rate 18 Blood Pressure 134/53 L Pulse Oximetry 97 Oxygen Delivery Method Room Air BMI result Body Mass Index 32.1 vss Appearance: Alert.? Oriented X3.? No acute distress.? Head: Normocephalic, atraumatic, no step-offs or deformities Eyes: Pupils equal, round and reactive to light.? CVS: Normal heart rate and rhythm.? Pulses normal.? Respiratory: No respiratory distress.? Breath sounds normal.? Abdomen: Soft and nontender.? Skin: Skin warm and dry.? Normal skin color.? Normal skin turgor.? Extremities: No lower extremity edema.? No calf ttp. 5/5 strength to bilateral upper and lower extremities full range of motion to bilateral ankles pain-free. Tenderness to palpation to right lateral malleolus. No foot drop. 2+ dorsalis pedis, anterior tibialis and posterior tibialis pulses equal bilateral. Normal capillary refill bilateral lower extremity toes. Normal sensation to bilateral lower extremities distally. No laxity noted. Back: No midline tenderness, no C-spine tenderness, full range of motion, no CVA tenderness bilaterally Neuro: Oriented X 3.? No motor deficit.? No sensory deficit. CN 2-12 intact Course Course Course Narrative: RME- patient reports she tripped and fell injuring her right ankle. X-ray ordered Reevaluation(s) Reevaluation #1: X-ray with no fracture, dislocation or right ankle joint effusion. There is moderate soft tissue swelling adjacent to the right lateral malleolus. Patient will be given Aircast, crutches, Toradol. Will have her follow-up with Ortho if needed. Educated on rice. Educated patient on diagnosis and treatment plan, answered all question, patient verbalizes understanding. At this time patient will be discharged home, advised to return with new or worsening symptoms. Educated on worrisome signs and symptoms and when to return. At this time I feel comfortable discharge home. Time: 21:57 Medications Administered Discontinued Medications Generic Name Dose Route Start Last Admin Trade Name Freq PRN Reason Stop Dose Admin Ketorolac Tromethamine 30 mg 02/01/23 21:37 02/01/23 21:42 Ketorolac Tromethamine 15 Mg/Ml Vial IM 02/01/23 21:38 30 mg ONCE ONE Administration Medical Decision Making Medical Decision Making [facility] Narrative: 32-year-old female presents with right ankle pain status post rolling her ankle after missing a few steps just prior to arrival. Physical exam significant for No lower extremity edema.? No calf ttp. 5/5 strength to bilateral upper and lower extremities full range of motion to bilateral ankles pain-free. Tenderness to palpation to right lateral malleolus. No foot drop. 2+ dorsalis pedis, anterior tibialis and posterior tibialis pulses equal bilateral. Normal capillary refill bilateral lower extremity toes. Normal sensation to bilateral lower extremities distally. No laxity noted. Will rule out fractures or dislocations. However likely sprain or strain. Unlikely neurovascular compromise threatened Limb. Plan imaging. Will give Toradol for pain Differential Diagnosis Differential Diagnoses: The differential diagnosis associated with the presentation includes Will rule out fractures or dislocations. However likely sprain or strain. Unlikely neurovascular compromise threatened Limb. Admission/Observation Consideration of admission/observation: Escalation of care including admission/observation considered Lab Data [facility] Lab Attestation statement: I reviewed the patient's lab results. Independent Interpretation I performed an independent interpretation of an: Plain X-Ray (Soft tissue swelling adjacent to the right lateral malleolus.) Radiology Impression Discussion of test interpretation with radiology: I have reviewed the radiologist's reading. Prescription Management I considered prescription management with: Pain Medication Core Measures AMI core measures followed: Yes Measure exclusions: not indicated Critical Care Time Critical Care Time Critical Care Time: No Discharge Plan Discharge Clinical Impression: Ankle sprain and strain Patient Disposition: Home, Self-Care Instructions: Ankle Sprain (ED), Ankle Sprain (DC), Crutch Instructions (ED), Ankle Stirrup Splint (ED), R.I.C.E. Treatment (ED) Additional Instructions: Take your medications as prescribed. If you were prescribed antibiotics today, it is important that you take your medication to their entirety, do not skip any doses, do not finish them early. Follow-up with your primary care provider this week. Follow-up with orthopedic team if needed. Return to the emergency department with new or worsening symptoms. Such as fevers, chills, chest pain, shortness of breath, nausea, vomiting, dizziness, headache, vision changes, lethargy In case of emergency call 911 Toradol has been sent to your pharmacy, you tolerated this well in the department. Please take this as prescribed do not take this with ibuprofen, or other NSAIDs, do not mix this with alcohol. Side effects of this medication including increased risk for bleeding and possible kidney injury. XR/XR ankle RT min 3V IMPRESSION: ? 1. No fracture, dislocation or right ankle joint effusion is seen. ? 2. There is moderate soft tissue swelling adjacent to the right lateral malleolus. Prescriptions: New ketorolac 10 mg tablet 10 mg PO TID PRN (Reason: pain) 5 Days Qty: 15 0RF No Action norethindrone-e.estradiol-iron [09/16 (28)] 1 mg-20 mcg (21)/75 mg (7) tablet 1 tab PO DAILY Qty: 84 3RF Referrals: [facility] [place]Provider Group] - 1 week Danitza Torres MD [Primary Care Provider] - 2 days Stand Alone Forms: Work/School Release
[2023-02-01] MEDS: Ketorolac Tromethamine 15 MG/ML VIAL 30 MG IM (21:42)
== END 2023-02-01 22:12 | disposition home or self-care (01) ==
PROVIDERS: Emergency Provider Student in an Organized Health Care Education/Training Program; PCP Internal Medicine
DX: S93.401A Sprain of unspecified ligament of right ankle, initial encounter (principal); S96.911A Strain of unspecified muscle and tendon at ankle and foot level, right foot, initial encounter; X50.1XXA Overexertion from prolonged static or awkward postures, initial encounter; Y93.89 Activity, other specified; Y92.511 Restaurant or cafe as the place of occurrence of the external cause; Y99.9 Unspecified external cause status
CPT/HCPCS: 73610; 96372; 99283; 99284; J1885

== ENCOUNTER → 2023-02-23 12:52 | Outpatient (BNVA) | payer OTHER, SELFPAY | PROVIDERS: PCP Internal Medicine; Visit Provider Physician Assistant | DX: S93.401A Sprain of unspecified ligament of right ankle, initial encounter (principal); X50.1XXA Overexertion from prolonged static or awkward postures, initial encounter; Y93.01 Activity, walking, marching and hiking; Y92.511 Restaurant or cafe as the place of occurrence of the external cause; Y99.8 Other external cause status | CPT/HCPCS: 99202 ==

== ENCOUNTER 2023-06-15 14:00 | Outpatient (RCR) | payer OTHER, SELFPAY ==
--- NOTE | 2023-03-15 17:06 | MHC.PT.EP ---
[facility] [place] Office [place] Office [place] Office [address] Aaron Murray [address] [phone] F: [phone] F: [phone] F: [phone] F: [phone] Physical Therapy Plan of Care Date of Evaluation: Date of Surgery: Diagnosis: RIGHT ankle injury (MD Dx) RIGHT ankle lateral ankle sprain (PT Dx) Assessment: Patient is a 32 y.o. female who is referred to PT by Jessica Mccracken PA-C with Dx of RIGHT ankle injury. PT diagnosis is RIGHT ankle lateral ankle sprain. Patient impairments include pain, swelling, antalgic gait, weakness, limited ROM.Patient current functional limitations are walking, ascending/descending stairs, bend/squat, yard work. Patient will benefit from skilled PT to address aforementioned impairments and functional limitations to meet established goals. Frequency and Duration: The patient will be seen 2x/week for 4 weeks Short Term Goals: 2 weeks Patient demonstrates consistency and independence with HEP to self manage symptoms. Patient presents without swelling in lateral R ankle, measured circumferential malleoli 22.5cm Loom Technician Goals: 4 weeks Patient presents with increased R ankle DF 0 degrees to normalize heel to toe gait pattern without AD use. Patient presents with increased R ankle inv/ev 4+/5 to be able to perform reciprocal stair pattern. Treatment Plan: Modalities to reduce pain, spasms and effusion. Manual therapy to restore motion and function. Therapeutic exercise to improve strength and flexibility. Neuromuscular re-education for posture and balance. Therapeutic activities to return to functional activities of daily living. Electronically signed by: Samuel Lizama, PT, DPT Please sign and return to therapist. Thank you for your referral.
--- NOTE | 2023-07-18 13:50 | MHC.PT.DC ---
[facility] [place] Office [place] Office [place] Office [address] Aaron Murray [address] [facility] [phone] F: [phone] F: [phone] F: [phone] F: [phone] Physical Therapy Discharge Report Diagnosis: RIGHT ankle injury (MD Dx) RIGHT ankle lateral ankle sprain (PT Dx) Date of Surgery: Date of Evaluation: 03/15/23 Date of Discharge: 07/18/23 Treatments to Date: 12 Cancellations to Date: No Shows to Date: 5 Discharge Status: Improved Function Independent with HEP Visit Non-compliance Discharge Summary: Leyla showed improvement in her sxs with PT interventions. However, she did not show to her last 4 visits and is therefore discharged from PT at this time. Electronically signed by: Samuel Lizama, PT, DPT Please sign and return to therapist. Thank you for your referral.
== END 2023-07-18 13:50 | disposition home or self-care (01) ==
LOC: HO.PT 14:00
PROVIDERS: PCP Internal Medicine; Visit Provider Physician Assistant
DX: S99.911A Unspecified injury of right ankle, initial encounter (principal)
CPT/HCPCS: 97035; 97110; 97112; 97116; 97140; 97161